=== PATIENT | male | born 1985 | race African-American/Black ===

== ENCOUNTER 2019-01-14 04:17 | Emergency (ER) | payer OTHER, SELFPAY ==
[~2019-01-14] VITALS: Ht 188 cm; Wt 122.5 kg
[2019-01-14 04:24] VITALS: BP 169/101
[2019-01-14] MEDS ORDERED: ORPH100T PO (05:03)
[2019-01-14] MEDS ORDERED: LIDO700A39 TP (05:03)
[2019-01-14] MEDS ORDERED: HYDR-3164 PO (05:03)
[2019-01-14] MEDS ORDERED: PRED20TA PO (05:03)
--- NOTE | 2019-01-14 05:03 | PHYS DOC ---
Past Medical History Past Medical History: No Pertinent History Past Surgical History: No Surgical History Alcohol Use: None Drug Use: None Adult General Chief Complaint Chief Complaint: BACK PAIN - NO INJURY HPI HPI Patient is a 33 year old male who presents with back pain that began tonight at 2100. He states the pain has been getting progressively worse and is now constant with some intermittent increases in pain. He has not been able to sleep tonight. The pain is described as both a dull and sharp pain rated at 9-10/10. Deep breaths in particular make the pain worse but some exaggerated motions also increase the pain. The pain localizes in the left thoracolumbar region with some radiation into the inguinal region. He also describes some left testicular ache. Occasionally the pain is felt as burning. Patient initially went the [facility] ED on [address] [place] and had a UA and CT of the abdomen and pelvis that were negative. He was given a oxycodone at the ED and an Rx for naproxen but doesn't feel like the analgesics have abated his complaints and is concerned that they may have missed something. Patient denies fevers, chills, dysuria, hematuria, penile discharge, or scrotal swelling. Review of Systems Review of Systems Constitutional: Denies fever or chills [] Respiratory: Denies cough or shortness of breath [] Cardiovascular: Denies chest pain or palpitations[] GI: Denies abdominal pain, nausea, vomiting, or diarrhea [] : Reports mild left testicular pain. Denies dysuria, hematuria, penile discharge, scrotal swelling.[] Musculoskeletal: Reports left-sided back pain that radiates to the left inguinal region.[] Integument: Denies rash or skin lesions [] Complete review of systems found to be within normal limits, except as documented in this note. Current Medications Current Medications Current Medications Medications (Trade) Dose Ordered Sig/[facility] Start Time Stop Time Status Last Admin Dose Admin Cyclobenzaprine HCl (Flexeril) 10 mg 1X ONCE 01/14/19 04:45 01/14/19 04:46 UNV Dexamethasone (Decadron) 10 mg 1X ONCE 01/14/19 04:45 01/14/19 04:46 UNV Ketorolac Tromethamine (Toradol 30mg Vial) 30 mg 1X ONCE 01/14/19 04:45 01/14/19 04:46 UNV Lidocaine (Lidoderm) 1 patch 1X ONCE 01/14/19 04:45 01/14/19 04:46 UNV Allergies Allergies Allergies Coded Allergies Type Severity Reaction Last Updated Verified No Known Drug Allergies 03/20/15 No Physical Exam Physical Exam Constitutional: Well developed, well nourished, no acute distress, non-toxic appearance. [] HENT: Normocephalic, atraumatic. [] Eyes: EOMI, conjunctiva normal, no discharge. [] Cardiovascular:Heart rate regular rhythm, no murmur [] Lungs & Thorax: Bilateral breath sounds clear to auscultation [] Abdomen: Soft, nontender, and nondistended. [] Skin: Warm, dry, no erythema, no rash. [] Back: Tenderness to palpation left paraspinal musculature in the thoracolumbar region with some mild hypertonicity. No CVA tenderness.. [] Neurologic: Alert and oriented, normal motor function, normal sensory function, no focal deficits noted. [] Psychologic: Affect normal, judgement normal, mood normal. Testicular Exam: Normal genitalia for uncircumcised male, no urethral discharge noted. No testicular tenderness noted. No testicular or scrotal mass palpated. No varicocele. Cremasteric reflex intact b/l[] EKG EKG [] Radiology/Procedures Radiology/Procedures [] Course & Med Decision Making Course & Med Decision Making Patient is a 33 year old male who presents for back pain with some radiation into left inguinal region. Physical exam shows some point tenderness in paraspinal musculature of the thoracolumbar region with pain that is worsened by deep inspiration and movement. He was evaluated in a nearby facility within the past few hours at which time a CT and UA were negative for any acute intraabdominal process or UTI. Discussed with patient that this is likely musculoskeletal in etiology and possibly may involve nerve impingement/irritati on given his intermittent burning sensations. Patient's pain address with analgesics, muscle relaxants and steroids with interval improvement. 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 Patient stable for discharge with outpatient follow-up with PCP. Discussed findings and plan with patient, who acknowledge understanding and agreement. [] Dragon Disclaimer Dragon Disclaimer This electronic medical record was generated, in whole or in part, using a voice recognition dictation system. Departure Departure Impression: Primary Impression: Back pain Disposition: HOME, SELF-CARE Condition: STABLE Referrals: SONIA WOOD (PCP) JUANIS ANDRES MD Patient Instructions: Back Pain, Adult, [id number] Scripts Hydrocodone/Apap 5-325 (NORCO 5-325 TABLET) 1 Each Tablet 1 TAB PO PRN Q6HRS PRN for PAIN, #14 TAB 0 Refills Prov: STANFORD BHAKTA DO 01/14/19 Lidocaine (Lidocaine) 1 Each Adh..patch 1 EACH TP Q12HR, #10 PATCH Keep patch on for 12 hours then remove and keep off for next 12 hours before reapplication of new patch. Prov: STANFORD BHAKTA DO 01/14/19 Prednisone (PREDNISONE) 20 Mg Tablet 2 TAB PO DAILY, #8 TAB Start this medication tomorrow Monday01/15/19 Prov: STANFORD BHAKTA DO 01/14/19 Orphenadrine Citrate (ORPHENADRINE CITRATE) 100 Mg Tablet.er 100 MG PO BID PRN for MUSCLE PAIN, #14 Prov: STANFORD BHAKTA DO 01/14/19 Problem Qualifiers Primary Impression: Back pain Back pain location: low back pain Chronicity: acute Back pain laterality: left Sciatica presence: without sciatica Qualified Codes: M54.5 - Low back pain STANFORD BHAKTA DO January 14, 2019 05:03
[2019-01-14] MEDS ORDERED: CYCLOBENZAPRINE 10 MG TABLET. PO ONE (05:15)
[2019-01-14] MEDS ORDERED: LIDOCAINE (700MG/PATCH) PATCH. TD ONE (05:15)
[2019-01-14] MEDS ORDERED: DEXAMETHASONE 4 MG TABLET PO ONE (05:15)
[2019-01-14] MEDS ORDERED: KETOROLAC 30 MG/ML VIAL. IM ONE (05:15)
== END 2019-01-14 05:21 | disposition home or self-care (01) ==
LOC: ER 04:17
DX: M54.5 Low back pain (principal); N50.812 Left testicular pain
CPT/HCPCS: 96372; 99284; J1885; J8540